=== PATIENT | male | born 1955 ===

== ENCOUNTER 2021-05-05 07:45 | Inpatient (IN) | payer OTHER ==
[~2021-05-05] VITALS: Ht 175.3 cm; Wt 93.4 kg
[2021-05-05] MEDS ORDERED: AVALIDE 300-121 EACH PO (09:32)
== END 2021-05-12 18:22 | DRG 470 ==
LOC: O/R 05-10 05:50 → SURH 05-10 07:00 → SURG 05-10 14:13 → SURH 05-10 14:42
PROVIDERS: ADMIT Orthopaedic Surgery; ATTEND Orthopaedic Surgery
PROC: 0SRC0J9 Replacement of Right Knee Joint with Synthetic Substitute, Cemented, Open Approach (ICD-10-PCS; principal; 2021-05-10 07:00)
DX: M17.11 Unilateral primary osteoarthritis, right knee (principal); D62 Acute posthemorrhagic anemia; I10 Essential (primary) hypertension; J45.998 Other asthma; Z20.822 Contact with and (suspected) exposure to COVID-19

== ENCOUNTER 2022-06-09 15:16 | Inpatient (IN) | payer OTHER ==
[~2022-06-09] VITALS: Ht 175.3 cm; Wt 97.1 kg
[~2022-06-09 15:16] MED LIST: AVALIDE 300-121 EACH PO
[2022-06-30] MEDS ORDERED: NORVASC2.5 M1 PO (10:24)
[2022-07-06] MEDS ORDERED: GABAPENTIN100 MG PO (13:04)
[2022-07-06] MEDS ORDERED: NORFLEX100MG PO (13:04)
[2022-07-06] MEDS ORDERED: XARELTO10 MG PO (13:05)
[2022-07-06] MEDS ORDERED: OXYC1TAB9 PO (13:05)
== END 2022-07-06 14:45 | disposition home or self-care (01) | DRG 470 ==
LOC: SURH 07-04 07:00 → SURG 07-04 08:33 → O/R 07-04 08:33 → SURG 07-04 15:39
PROVIDERS: ADMIT Orthopaedic Surgery; ATTEND Orthopaedic Surgery
PROC: 0SRD0J9 Replacement of Left Knee Joint with Synthetic Substitute, Cemented, Open Approach (ICD-10-PCS; principal; 2022-07-04 07:00)
DX: M17.12 Unilateral primary osteoarthritis, left knee (principal); D62 Acute posthemorrhagic anemia; M85.662 Other cyst of bone, left lower leg; I10 Essential (primary) hypertension; Z96.652 Presence of left artificial knee joint; Z20.822 Contact with and (suspected) exposure to COVID-19